=== PATIENT | male | born 1980 | race Hispanic/Latino ===

== ENCOUNTER 2016-09-20 10:22 | Emergency (ER) | payer MEDICAID ==
[2016-09-20 10:27] VITALS: BP 161/86; PULSE 74; RESP 18; TEMP 99.2; O2SAT 100; BMI 20.4
[2016-09-20] MEDS ORDERED: Sodium Chloride 0.9% 1,000 ML IV STA (11:18)
[2016-09-20 11:59] LABS: BASO % 0.2 % (0.0-2.0); HEMATOCRIT 43.2 % (35.0-51.0); LYMPH # 1.3 K/uL (1.0-4.3); LYMPH % 16.4 % (20.0-40.0); MEAN CELL VOLUME 91.4 fl (80.0-94.0); MEAN CORPUSCULAR HEMOGLOBIN 30.3 pg (27.0-31.0); MEAN CORPUSCULAR HGB CONC 33.2 g/dL (33.0-37.0); MEAN PLATELET VOLUME 8.9 fl (7.2-11.7); MONO # 0.7 K/uL (0.0-0.8); MONO % 8.8 % (0.0-10.0); NEUT # 5.7 K/uL (1.8-7.0); NEUT % 74.6 % (50.0-75.0); NRBC % 0.1 % (0.0-0.0); RED CELL DISTRIBUTION WIDTH 14.9 % (11.5-14.5); WHITE BLOOD COUNT 7.6 K/uL (4.8-10.8)
[2016-09-20 12:12] LABS: ALB/GLOB RATIO 1.7 (1.0-2.1); ALKALINE PHOSPHATASE 52 U/L (38-126); ALT/SGPT 32 U/L (21-72); AST/SGOT 22 U/L (17-59); BILIRUBIN,TOTAL 0.6 mg/dl (0.2-1.3); BLOOD UREA NITROGEN 12 mg/dl (9-20); CALCIUM 9.9 mg/dL (8.4-10.2); CARBON DIOXIDE 27 mmol/L (22-30); CHLORIDE 98 mmol/L (98-107); GFR AFRICAN-AMERICAN > 60; GLUCOSE,RANDOM 116 mg/dL (75-110); POTASSIUM 3.6 MMOL/L (3.6-5.0); SODIUM 138 mmol/l (132-148); TOTAL PROTEIN 8.7 G/DL (6.3-8.2)
[2016-09-20 12:28] LABS: RBC URINE 3 /hpf (0-3); URINE BACTERIA RARE (<OCC); URINE BILIRUBIN NEGATIVE (NEGATIVE); URINE BLOOD NEGATIVE (NEGATIVE); URINE COLOR AMBER (YELLOW); URINE GLUCOSE (UA) NEG (Normal); URINE KETONE 80 mg/dL (NEGATIVE); URINE LEUKOCYTE ESTERASE NEG Leu/uL (Negative); URINE PROTEIN 100 mg/dL (NEGATIVE); WBC URINE 2 /hpf (0-5)
--- NOTE | 2016-09-20 12:35 | ED PDOC ---
Syncope/Near Syncope/Dizziness Time Seen by Provider: 09/20/16 11:01 Chief Complaint (Nursing): Dizziness/Lightheaded Chief Complaint (Provider): dizzy, lightheaded History Per: Patient Additional Complaint(s): pt c/o dizziness, lightheadedness this morning. states he is concerned because his urine was very dark and that he might be dehydrated. denies syncope, cp, sob, palp, abd pain, n/v. feels better after drinking several pitchers of water upon arrival. Past Medical History Reviewed: Historical Data, Nursing Documentation, Vital Signs Vital Signs: Last Vital Signs Temp 99.2 F 09/20/16 10:27 Pulse 74 09/20/16 10:27 Resp 18 09/20/16 10:27 BP 161/86 H 09/20/16 10:27 Pulse Ox 100 09/20/16 10:27 - Medical History PMH: HTN Other PMH: PTSD, narcotic abuse - Family History Family History: States: No Known Family Hx - Social History Current smoker - smoking cessation education provided: Yes Alcohol: None Drugs: Cannabis (medical), Prescription medications (benzos) - Allergies Allergies/Adverse Reactions: Allergies Allergy/AdvReac Type Severity Reaction Status Date / Time No Known Allergies Allergy Verified 09/20/16 10:46 Review of Systems ROS Statement: Except As Marked, All Systems Reviewed And Found Negative Neurological: Positive for: Dizziness Physical Exam - Reviewed Nursing Documentation Reviewed: Yes Vital Signs Reviewed: Yes - Physical Exam Appears: Positive for: Well, Non-toxic, No Acute Distress Head Exam: Positive for: ATRAUMATIC, NORMAL INSPECTION, NORMOCEPHALIC Skin: Positive for: Normal Color, Warm, DRY Eye Exam: Positive for: EOMI, Normal appearance, PERRL Neck: Positive for: Normal, Painless ROM Cardiovascular/Chest: Positive for: Regular Rate, Rhythm Respiratory: Positive for: CNT, Normal Breath Sounds Gastrointestinal/Abdominal: Positive for: Normal Exam, Bowel Sounds, Soft. Negative for: Tenderness Extremity: Positive for: Normal ROM. Negative for: Tenderness Neurologic/Psych: Positive for: Alert, Oriented, Gait (steady). Negative for: Motor/Sensory Deficits - Laboratory Results Result Diagrams: 09/20/16 11:50 09/20/16 11:50 - ECG O2 Sat by Pulse Oximetry: 100 Medical Decision Making Medical Decision Making: ekg nsr. cxr nad. labs wnl. urine concentrated, otherwise wnl. will d/c home. Disposition - Clinical Impression Clinical Impression: Dizziness - Patient ED Disposition Is Patient to be Admitted: No - Disposition [facility]errals: [facility] [Outside] Disposition: Routine/Home Disposition Time: 14:19 Condition: GOOD Instructions: Lightheadedness (ED)
[2016-09-20 12:42] LABS: THYROID STIMULATING HORMONE 0.51 mIU/ML (0.46-4.68)
--- NOTE | 2016-09-20 14:56 | CARD ---
APPROVED REPORT EKG Measurement Heart [id number] <Conclusion> Normal sinus rhythm Normal ECG
--- NOTE | 2016-09-20 15:32 | RAD ---
HISTORY: dizzy COMPARISON: No prior. TECHNIQUE: Chest PA and lateral FINDINGS: LUNGS: No active pulmonary disease. PLEURA: No significant pleural effusion identified. No pneumothorax apparent. CARDIOVASCULAR: Normal. OSSEOUS STRUCTURES: No significant abnormalities. VISUALIZED UPPER ABDOMEN: Normal. OTHER FINDINGS: None. IMPRESSION: No active disease.
== END 2016-09-20 14:36 | disposition home or self-care (01) ==
LOC: H.ER 10:22
DX: R42 Dizziness and giddiness (principal)
CPT/HCPCS: 71020; 80053; 81003; 82948; 84443; 84484; 85025; 93005; 99284; J7040

== ENCOUNTER 2016-11-04 16:29 | Emergency (ER) | payer MEDICAID ==
[2016-11-04 16:29] VITALS: BMI 20.4
[2016-11-04 16:33] VITALS: RESP 18
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
[2016-11-04 17:24] LABS: BASO % 0.4 % (0.0-2.0); EOS # 0.1 K/uL (0.0-0.7); EOS % 1.1 % (0.0-4.0); HEMATOCRIT 40.1 % (35.0-51.0); LYMPH # 1.9 K/uL (1.0-4.3); LYMPH % 24.2 % (20.0-40.0); MEAN CELL VOLUME 91.5 fl (80.0-94.0); MEAN CORPUSCULAR HEMOGLOBIN 30.3 pg (27.0-31.0); MEAN CORPUSCULAR HGB CONC 33.1 g/dL (33.0-37.0); MEAN PLATELET VOLUME 8.5 fl (7.2-11.7); MONO # 0.5 K/uL (0.0-0.8); MONO % 6.5 % (0.0-10.0); NEUT # 5.3 K/uL (1.8-7.0); NEUT % 67.8 % (50.0-75.0); RED CELL DISTRIBUTION WIDTH 13.9 % (11.5-14.5); WHITE BLOOD COUNT 7.8 K/uL (4.8-10.8)
[2016-11-04 17:49] LABS: CHLORIDE 101 mmol/L (98-107)
[2016-11-04 17:50] LABS: POTASSIUM 3.8 MMOL/L (3.6-5.0); SODIUM 140 mmol/l (132-148)
[2016-11-04 17:52] LABS: ALB/GLOB RATIO 1.5 (1.0-2.1); BILIRUBIN,TOTAL 0.7 mg/dl (0.2-1.3); CARBON DIOXIDE 31 mmol/L (22-30); GFR AFRICAN-AMERICAN > 60; TOTAL PROTEIN 7.3 G/DL (6.3-8.2)
[2016-11-04 17:53] LABS: ALKALINE PHOSPHATASE 86 U/L (38-126); ALT/SGPT 38 U/L (21-72); AST/SGOT 22 U/L (17-59); BLOOD UREA NITROGEN 13 mg/dl (9-20); CALCIUM 9.7 mg/dL (8.4-10.2); GLUCOSE,RANDOM 70 mg/dL (75-110); MAGNESIUM 1.9 MG/DL (1.6-2.3); PHOSPHOROUS 3.2 mg/dl (2.5-4.5)
[2016-11-04 17:54] LABS: ALCOHOL SERUM < 10 mg/dl (0-10)
[2016-11-04 18:39] LABS: THYROID STIMULATING HORMONE 0.54 mIU/ML (0.46-4.68)
[2016-11-04 19:49] VITALS: BP 139/71; PULSE 81; TEMP 98.2; O2SAT 100
--- NOTE | 2016-11-05 10:32 | CARD ---
APPROVED REPORT EKG Measurement Heart [id number] <Conclusion> Normal sinus rhythm Normal ECG
== END 2016-11-04 19:51 | disposition home or self-care (01) ==
LOC: H.ER 16:29
DX: F41.9 Anxiety disorder, unspecified (principal); F43.10 Post-traumatic stress disorder, unspecified; I10 Essential (primary) hypertension